=== PATIENT | female | born 1960 | race Caucasian/White ===

== ENCOUNTER 2016-12-06 22:51 | Inpatient (IN) | payer MEDICAID ==
[~2016-12-06] VITALS: Ht 165.1 cm; Wt 92.3 kg
[~2016-12-06 22:51] MED LIST: ALPR2TAB2 PO; THYR30TA PO
[2016-12-06 23:56] LABS: Basophils # (auto) 0.1 uL; Basophils % (auto) 0.7 % (0.0-2.0); Eosinophils # (auto) 0.3 uL; Eosinophils % (auto) 3.4 % (0.0-7.0); Hematocrit 39.6 % (36.0-46.0); Hemoglobin 13.5 g/dL (12.2-16.2); Lymphocytes # (auto) 3.6 uL; Lymphocytes % (auto) 44.5 % (10.0-50.0); Mean Corpuscular Hemoglobin 29.9 pg (28.0-32.0); Mean Corpuscular Volume 88.1 fL (80.0-100.0); Mean Platelet Volume 8.5 fL (7.4-10.4); Monocytes # (auto) 0.4 uL; Monocytes % (auto) 4.6 % (0.0-12.0); Neutrophils # (auto) 3.6 uL; Neutrophils % (auto) 46.8 % (37.0-80.0); Platelet Count (auto) 283 10^3/uL (140-450); Red Cell Distribution Width 13.9 % (11.6-16.0)
[2016-12-07 00:01] LABS: Acetaminophen < 2.0 ug/mL (10-30); Albumin 3.3 g/dL (3.4-5.0); BUN/Creatinine Ratio 9.5; Calcium 7.8 mg/dL (8.5-10.1); Potassium 3.8 mmol/L (3.5-5.1); Salicylate < 1.7 mg/dL (2.8-20.0)
[2016-12-07 00:04] LABS: Bilirubin, Total 0.2 mg/dL (0.2-1.0); Total Protein 6.2 g/dL (6.4-8.2)
[2016-12-07] MEDS ORDERED: SODIUM CHLORIDE 0.9% 2,000 ML IV ONE (00:15)
[2016-12-07 03:22] LABS: Urine RBC None Seen /hpf (0 - 4)
[2016-12-07 03:29] LABS: Urine Bilirubin Negative (Negative); Urine Blood Negative /uL (Negative); Urine Color Yellow (Yellow); Urine Glucose Normal (Normal); Urine Ketone Negative (Negative); Urine Nitrite Negative (Negative); Urine Urobilinogen Normal (Negative)
[2016-12-07] MEDS ORDERED: SODIUM CHLORIDE 0.9% 1,000 ML IV SCH (05:01)
[2016-12-07] MEDS ORDERED: ONDANSETRON HCL 4 MG/2 ML VIAL IV PRN (05:15)
[2016-12-07] MEDS ORDERED: SODIUM CHLORIDE 0.9% 500 ML IV ONE (05:15)
[2016-12-07] MEDS ORDERED: NITROGLYCERIN 0.4 MG SL TAB SL PRN (05:15)
[2016-12-07] MEDS ORDERED: ACETAMINOPHEN 325 MG TAB PO PRN (05:15)
[2016-12-07] MEDS ORDERED: MORPHINE SULFATE 4 MG/ML SYRG IV PRN (05:15)
[2016-12-07] MEDS ORDERED: HYDROcodone-ACET 5/325MG TAB PO PRN (05:15)
[2016-12-07 09:15] VITALS: BP 124/87
[2016-12-07] MEDS: PANTOPRAZOLE SODIUM 40 MG/10 ML VIAL IV SCH (10:33)
[2016-12-07] MEDS: ENOXAPARIN SOD 40 MG/0.4 ML SYRINGE SC SCH (10:33)
[2016-12-07 10:35] VITALS: BP 124/87
[2016-12-07 11:09] LABS: BUN/Creatinine Ratio 5.8; Calcium 7.6 mg/dL (8.5-10.1)
[2016-12-07] MEDS: THIAMINE INJ 100 MG, MULTIPLE VITAMIN 10 ML, FOLIC ACID 1 MG, MAGNESIUM SULF SDV 50% 8 ... IV SCH ×5 (12:47)
[2016-12-07 13:00] VITALS: BP 115/74
[2016-12-07 17:01] VITALS: BP 100/63
[2016-12-07] MEDS ORDERED: CIPR-173 PO (17:42)
[2016-12-07 21:41] VITALS: BP 105/60
[2016-12-07] MEDS ORDERED: LORazepam 2MG/ML-1ML VIAL IV ONE (22:00)
[2016-12-08 04:34] VITALS: BP 100/63
[2016-12-08 05:39] LABS: Basophils # (auto) 0.1 uL; CONDITION Y; Eosinophils # (auto) 0.3 uL; Eosinophils % (auto) 3.2 % (0.0-7.0); Hemoglobin 13.4 g/dL (12.2-16.2); Lymphocytes # (auto) 4.2 uL; Lymphocytes % (auto) 46.3 % (10.0-50.0); Mean Corpuscular Hemoglobin 30.3 pg (28.0-32.0); Mean Corpuscular Hgb Conc. 34.3 g/dL (32.0-36.0); Mean Corpuscular Volume 88.4 fL (80.0-100.0); Mean Platelet Volume 8.8 fL (7.4-10.4); Monocytes # (auto) 0.4 uL; Monocytes % (auto) 4.4 % (0.0-12.0); Neutrophils # (auto) 4.1 uL; Neutrophils % (auto) 45.1 % (37.0-80.0); Platelet Count (auto) 285 10^3/uL (140-450); Red Cell Distribution Width 15.4 % (11.6-16.0); White Blood Cell 9.1 10^3/uL (4.4-10.8)
[2016-12-08 05:57] LABS: Albumin 2.9 g/dL (3.4-5.0); Potassium 3.8 mmol/L (3.5-5.1)
[2016-12-08 06:00] LABS: BUN/Creatinine Ratio 8.5
[2016-12-08 06:03] LABS: Bilirubin, Total 0.2 mg/dL (0.2-1.0); Total Protein 5.9 g/dL (6.4-8.2)
[2016-12-08 08:50] VITALS: BP 111/75
[2016-12-08] MEDS: PANTOPRAZOLE SODIUM 40 MG/10 ML VIAL IV SCH (10:26)
[2016-12-08] MEDS: ENOXAPARIN SOD 40 MG/0.4 ML SYRINGE SC SCH (10:26)
[2016-12-08] MEDS: THIAMINE INJ 100 MG, MULTIPLE VITAMIN 10 ML, FOLIC ACID 1 MG, MAGNESIUM SULF SDV 50% 8 ... IV SCH ×5 (12:15)
[2016-12-08 13:00] VITALS: BP 123/69
[2016-12-08 17:35] VITALS: BP 119/76
[2016-12-08 21:47] VITALS: BP 106/70
[2016-12-09 00:45] VITALS: BP 131/84
[2016-12-09 06:15] VITALS: BP 124/79
[2016-12-09] MEDS: ENOXAPARIN SOD 40 MG/0.4 ML SYRINGE SC SCH (10:21)
[2016-12-09] MEDS: PANTOPRAZOLE SODIUM 40 MG/10 ML VIAL IV SCH (10:21)
[2016-12-09 11:46] VITALS: BP 130/76
== END 2016-12-09 13:24 | disposition home or self-care (01) | DRG 812 ==
LOC: EDUNIT# 22:51 → EDBD 22:51 → ER 22:51 → TELE 22:52 → TELE-WESTW 12-07 09:07
PROVIDERS: ADMIT Nurse Practitioner; ATTEND Internal Medicine
DX: T42.4X2A Poisoning by benzodiazepines, intentional self-harm, initial encounter (principal); G92 Toxic encephalopathy; F41.9 Anxiety disorder, unspecified; T14.91 Suicide attempt
CPT/HCPCS: 36415; 51702; 80048; 80053; 80307; 80320; 80329; 81001; 82962; 83735; 84484; 85025; 93005; 96360; 96361; C9113

== ENCOUNTER 2016-12-09 19:46 | Emergency (ER) | payer MEDICAID ==
[~2016-12-09] VITALS: Ht 165.1 cm; Wt 72.6 kg
[~2016-12-09 19:46] MED LIST changes: +CIPR-173 PO
[2016-12-09] MEDS ORDERED: ALPRAZolam 0.5 MG TAB PO ONE (23:30)
[2016-12-10 01:18] VITALS: BP 126/84
== END 2016-12-10 01:58 | disposition home or self-care (01) ==
LOC: ER 19:50
DX: T42.4X2A Poisoning by benzodiazepines, intentional self-harm, initial encounter (principal); F32.9 Major depressive disorder, single episode, unspecified; F41.9 Anxiety disorder, unspecified; E07.9 Disorder of thyroid, unspecified